=== PATIENT | male | born 1960 | race American Indian/Alaskan Native ===

== ENCOUNTER 2016-08-28 03:50 | Emergency (ER) | payer OTHER ==
[2016-08-28 04:05] VITALS: BP 143/96
[2016-08-28] MEDS ORDERED: FLEXERIL PO ONE (06:28)
[2016-08-28] MEDS ORDERED: TORADOL IM ONE (06:28)
--- NOTE | 2016-08-28 06:32 | Emergency Department Report ---
HPI - General Chief Complaint: Extremity Injury, Lower Time Seen by Provider: 08/28/16 06:27 - HPI HPI: 56-year-old male presents ED complaining of right leg pain past 2 days. Patient is just pain starts on his right hip and feels a radating anteriorly down his foot. Patient states he has a pins and needles on his foot. Patient states he does not take any medications and is not allergic to any medicines. Patient is not a diabetic and is unaware. Patient denies any trauma or injury to the foot or hip. Patient had no loss of sensation. He denies fevers/chills/nausea/vomiting/abdominal pain/chest pain/shortness of breath. ED Past Medical Hx - Past Medical History Previous Medical History?: No - Surgical History Past Surgical History?: No - Social History Smoking Status: Current Every Day Smoker Substance Use Type: None - Medications Home Medications: Home Medications Medication Instructions Recorded Confirmed Last Taken Type Cyclobenzaprine [Flexeril] 10 mg PO QHS PRN #30 tablet 08/28/16 Unknown Rx Naproxen [Naprosyn] 500 mg PO BID #40 tablet 08/28/16 Unknown Rx ED Review of Systems ROS: Stated complaint: L LEG PAIN/NUMBNESS Other details as noted in HPI Constitutional: denies: chills, fever Eyes: denies: eye pain, eye discharge, vision change ENT: denies: ear pain, throat pain Respiratory: denies: cough, shortness of breath, wheezing Cardiovascular: denies: chest pain, palpitations Endocrine: no symptoms reported Gastrointestinal: denies: abdominal pain, nausea, vomiting, diarrhea, constipation Genitourinary: denies: urgency, dysuria Musculoskeletal: denies: back pain, joint swelling, arthralgia Skin: denies: rash, lesions Neurological: denies: headache, weakness, paresthesias Psychiatric: denies: anxiety, depression Hematological/Lymphatic: denies: easy bleeding, easy bruising Physical Exam - Physical Exam Vital Signs: Vital Signs 08/28/16 04:01 Temperature 98.3 F Pulse Rate 57 L Respiratory 20 Rate Blood Pressure 143/96 O2 Sat by Pulse 100 Oximetry Physical Exam: GENERAL: Alert and oriented x3, no apparent distress, Normal Gait, atraumatic. HEAD: Head is normocephalic and a-traumatic. NECK: Supple. Non edematous, No carotid bruits. No lymphadenopathy or thyromegaly. No C-spine tenderness LUNGS: Symetrical with respiration, No wheezing, no rales or crackles, CTAB. HEART: S1, S2 present, regular rate and rhythm without murmur, no rubs, no gallops. EXTREMITIES/MUSCULOSKELETAL: No cyanosis, clubbing, rash, lesions or edema. Full ROM bilaterally. UE/LE Pulses 2+ bilaterally. LE and UE 5+ strength bilaterally, straight leg raise positive on the right leg. Pain at hip with flexion of the leg. No pain right. NEUROLOGIC: The patient is cooperative with no focal neurologic deficits. Cranial nerves II through XII are grossly intact. Normal speech. Normal sensation SKIN: Warm and dry, No lesions, No ulceration or induration present. ED Course Vital Signs 08/28/16 04:01 Temperature 98.3 F Pulse Rate 57 L Respiratory 20 Rate Blood Pressure 143/96 O2 Sat by Pulse 100 Oximetry ED Medical Decision Making - Medical Decision Making 56-year-old male presents to ED with right hip arthralgia ED course: Patient received pain medication in ED X-rays of the foot and ankle, knee, hip was also taken. All normal x-rays. Vital signs are normal patient is in no acute respiratory distress. Discussed the patient follow up with primary care physician to be tested for diabetes. Patient states he is going to follow-up. Critical care attestation.: If time is entered above; I have spent that time in minutes in the direct care of this critically ill patient, excluding procedure time. ED Disposition Clinical Impression: Arthritis of right hip Disposition: DISCHARGED TO HOME OR SELFCARE Is pt being admited?: No Does the pt Need Aspirin: No Condition: Stable Instructions: Osteoarthritis (ED), Arthralgia (ED) Prescriptions: Cyclobenzaprine [Flexeril] 10 mg PO QHS PRN #30 tablet PRN Reason: Muscle Spasm Naproxen [Naprosyn] 500 mg PO BID #40 tablet Referrals: [facility] [Outside] - 3-5 Days [facility] [Outside] - 3-5 Days Forms: Accompanied Note, Work/School Release Form Time of Disposition: 06:33
--- NOTE | 2016-08-28 10:04 | XRay Report ---
FINAL REPORT PROCEDURE: XRAY KNEE COMPLETE RIGHT TECHNIQUE: RIGHT knee radiographs, AP, lateral and sunrise views. CPT 41720 HISTORY: pain down right leg COMPARISON: No prior studies are available for comparison. FINDINGS: Fracture (s) and/or Dislocation(s): None . Alignment: Normal . Joint space(s): Normal . Soft tissues: Normal . Bone mineralization: Normal . Foreign bodies: None . IMPRESSION: Normal Examination.
--- NOTE | 2016-08-28 10:04 | XRay Report ---
FINAL REPORT PROCEDURE: XRAY HIP COMPLETE RIGHT TECHNIQUE: RIGHT hip radiographs, 2 views each, including AP view of the pelvis. HISTORY: pain down right leg COMPARISON: No prior studies are available for comparison. FINDINGS: Fracture (s) and/or Dislocation(s): None . Joint space(s): Moderate narrowing of the hip joint spaces. Mild spur formation off the acetabulum. Soft tissues: Normal. Bone mineralization: Normal. Foreign bodies: None. IMPRESSION: No evidence of an acute fracture or dislocation. Mild arthritis
--- NOTE | 2016-08-28 10:05 | XRay Report ---
FINAL REPORT PROCEDURE: XRAY ANKLE 2 VIEWS TECHNIQUE: RIGHT ankle radiographs, AP and lateral views. HISTORY: pain down right leg COMPARISON: No prior studies are available for comparison. FINDINGS: Fracture (s) and/or Dislocation(s): None. Alignment: Normal. Joint space(s): Normal. Soft tissues: Normal. Bone mineralization: Normal. Foreign bodies: Normal. Calcaneal spurring: Normal. IMPRESSION: Normal Examination .
== END 2016-08-28 07:00 | disposition home or self-care (01) ==
LOC: ED 03:50
DX: M13.851 Other specified arthritis, right hip (principal); F17.200 Nicotine dependence, unspecified, uncomplicated
CPT/HCPCS: 73502; 73562; 73600; 96372; 99283; J1885